=== PATIENT | male | born 2000 | race Two or more races ===

== ENCOUNTER 2024-04-05 16:49 | Emergency (ER) | payer MEDICAID, SELFPAY ==
[2024-04-05 17:15] VITALS: BP 118/78; PULSE 118; RESP 16; TEMP 38.4; O2SAT 98; BMI 24.4
--- NOTE | 2024-04-05 17:21 | XR_ITS ---
Examination: AP lateral chest 2 views TECHNIQUE: Upright AP lateral chest 2 views Exam date and time: April 05, 2024 1743 hours INDICATIONS: Coughing weakness today FINDINGS: Normal heart size Lungs are clear The osseous structures are intact IMPRESSION: No active disease
--- NOTE | 2024-04-05 17:22 | PD.EDRME ---
Rapid Medical Screening Exam E Arrival date/time: 04/05/24 16:49 23-year-old male presents the emergency department complaint of bilateral leg pain and muscle weakness patient noted to be febrile Chief Complaint: Extremity Problem,Nontraumatic Time Seen by Provider: 04/05/24 17:02 Vital signs: Vital Signs Temperature 101.1 F H 04/05/24 17:15 Pulse Rate 118 H 04/05/24 17:15 Respiratory Rate 16 04/05/24 17:15 Blood Pressure 118/78 04/05/24 17:15 Pulse Oximetry (%) 98 04/05/24 17:15 Oxygen Delivery Method Room Air 04/05/24 17:15
[2024-04-05 17:25] VITALS: TEMP 38.4
[2024-04-05] MEDS: IBUPROFEN TAB 400 MG TABLET 800 MG PO (17:25)
[2024-04-05 17:50] LABS: Lactate (Lactic Acid) 1.5 mMol/L (0.4-2.0)
[2024-04-05 17:53] LABS: Basophils # (Auto) 0.1 Thou/mm3 (0.0-0.2); Basophils % (Auto) 0 % (0-2.5); Eosinophils % (Auto) 0 % (0-10); Hematocrit 39.4 % (41.0-53.0); Immature Granulocytes % (Auto) 0 % (0-0); Immature Granulocytes Auto 0.04 Thou/mm3 (0.00-0.00); Lymphocytes # (Auto) 2.2 Thou/mm3 (1.0-4.8); Lymphocytes % (Auto) 15 % (10-50); Mean Corpuscular HGB Conc 35.5 g/dl (31.0-37.0); Mean Corpuscular Hemoglobin 29.6 pg (25.0-35.0); Mean Corpuscular Volume 83 fL (80-100); Monocytes # (Auto) 0.8 Thou/mm3 (0.0-0.8); Monocytes % (Auto) 6 % (0-12); Neutrophils # (Auto) 11.4 Thou/mm3 (1.8-7.7); Neutrophils % (Auto) 79 % (37-80); Nucleated Red Blood Cell % 0 /100 WBC (0); Platelet Count 307 Thou/mm3 (140-440); Red Blood Count 4.73 Miln/mm3 (4.50-5.90); White Blood Count 14.5 Thou/mm3 (3.8-10.6)
[2024-04-05 18:16] LABS: Alanine Aminotransferase 22 U/L (10-49); Albumin, Serum 4.8 gm/dL (3.5-5.0); Albumin/Globulin Ratio 1.6 (1.2-2.2); Alkaline Phosphatase 97 U/L (46-116); Anion Gap 9 (7-16); Aspartate Amino Transferase 25 U/L (0-34); BUN/Creatinine Ratio 10 Ratio (12-20); Bilirubin,Total 0.8 mg/dL (0.3-1.2); Blood Urea Nitrogen 7 mg/dL (9-23); C-Reactive Protein 6.2 mg/dL (0.0-0.9); Calcium 9.7 mg/dL (8.3-10.6); Calcium (Corrected) 9.7 mg/dL (8.5-10.1); Carbon Dioxide 24.3 mMol/L (20.0-31.0); Chloride 102 mMol/L (98-107); Creatine Kinase 136 U/L (34-171); Creatinine (Component) 0.7 mg/dL (0.6-1.3); Glucose 119 mg/dL (74-106); Osmolality,Calculated 269 (275-295); Potassium 3.5 mMol/L (3.4-5.1); Procalcitonin 0.16 ng/ml (0.0-0.49); Sodium 135 mMol/L (136-145); Total Protein 7.8 gm/dL (5.7-8.2); eGFR > 60 See Note
[2024-04-05 18:50] LABS: Collection Type, Urine Clean Catch
[2024-04-05 18:54] LABS: Bilirubin,Urine Negative (Negative); Blood,Urine Negative (Negative); Clarity,Urine Clear (Clear/Hazy); Color,Urine Lt-Yellow (Lt Yel-Yel); Culture Indicated,Urine Not Indicated; Glucose, Urine Negative (Negative); Ketones,Urine Negative (Negative); Leukocyte Esterase,Urine Negative (Negative); Nitrite,Urine Negative (Negative); Protein,Urine Negative (Neg - Trace); RBC,Urine 1 /hpf (0-3); Specific Gravity,Urine 1.008 (1.001-1.035); Squamous Epithelial Cell,Urine < 1 /hpf (0-5); Urobilinogen,Urine Negative mg/dL (0.0-1.0); WBC,Urine 1 /hpf (0-5)
[2024-04-05 20:55] VITALS: TEMP 36.8
[2024-04-05 20:56] VITALS: BP 108/68; PULSE 85; RESP 16; O2SAT 100
--- NOTE | 2024-04-05 20:57 | PC.NURSE ---
Pt to room 4 right now from lobby; assumed care.
--- NOTE | 2024-04-05 21:11 | PC.NURSE ---
Wilman Salazar at the bedside.
--- NOTE | 2024-04-05 21:17 | PD.EDADULT ---
ED General RME/HPI General Chief complaint: Extremity Problem,Nontraumatic Stated complaint: BILATERAL LOWER LEG / KNEE PAIN Time Seen by Provider: 04/05/24 17:02 Arrival date/time: 04/05/24 16:49 CC: Lower leg ankle pain and left elbow pain insidious onset woke up with it this morning. Denies any nausea vomiting or diarrhea was noted to have a fever when he triaged. The patient's mother states there is no other family members were ill with similar symptoms. Patient has no prior history of similar events. No OTC medicines taken. At the time of exam the patient already been given ibuprofen some hours before and has minimal pain at this time. RME / HPI RME / HPI narrative: 04/05/24 16:49 23-year-old male presents the emergency department complaint of bilateral leg pain and muscle weakness patient noted to be febrile Related Data Previous Rx's ?Medication ?Instructions ?Recorded mupirocin 2 % topical ointment 1 applicatio topical BID #22 grams 01/30/19 ibuprofen 400 mg tablet 400 mg PO Q8H #14 tabs 04/05/24 prednisone 20 mg tablet See Taper PO BID 3 days #6 tabs 04/05/24 Allergies Allergy/AdvReac Type Severity Reaction Status Date / Time No Known Allergies Allergy Verified 04/05/24 16:51 Review of Systems Review of Systems Narrative Review of Systems: GEN: No fever, no chills, no weight loss EYES: No discharge, no visual changes, no pain HEENT: No ear pain, no congestion, no sore throat PULM: No shortness of breath, no cough, no congestion CV: No chest pain, no dyspnea on exertion, no palpitations GI: No nausea, no vomiting, no diarrhea, no pain, no constipation : No frequency, no urgency, no dysuria MUSC/SKEL: +joint pain, no back pain SKIN: No rash PSYCH: No hallucinations, no depression HEME/LYMPH: No easy bleeding or bruising tendencies NEURO: No weakness, no headache Past Medical History Past Medical History CARDIAC: Negative Congestive Heart Failure RESPIRATORY: Negative Chronic Obstructive Pulmonary Disease (COPD) GENITOURINARY: Negative Renal Disease ENDOCRINE: Negative Diabetes Mellitus Type 1 or Diabetes Mellitus Type 2 Social History SMOKING STATUS: Never smoker ED Exam Narrative Physical exam: [General: Not in any acute distress Head normocephalic HEENT: Within acceptable limits Neck is supple nontender Chest equal chest rise nontender to palpation Respiratory: Clear to auscultation no wheezes crackles or rubs CV: Rate rhythm is regular no murmurs rubs or clicks Abdomen is soft nontender no masses positive bowel sounds all 4 quadrants Back: No CVA tenderness no spinous process tenderness from cervical spine thoracic and lumbar spine Skin: Intact no petechiae rash induration ulceration or crepitus Extremities: Lower extremities: Moving all extremities against resistance without complication no petechiae rash induration ulceration purpura, there is some very small amount of edema to the lateral malleolus of the left ankle, full range of motion cap refill in the digits less than 2 seconds. There is mild tenderness to the lateral malleolus. Moving all other extremities against resistance cap refill less than 2 seconds neurosensory intact Neuro: Awake alert oriented x3 Glascow coma 15 no focal deficits] Course Quality Measures none Orders Category Date Time Status Bedside COVID-19 Antigen Test NOW Care 04/05/24 17:21 Completed Bedside Influenza A&B Antigen Test NOW Care 04/05/24 17:21 Completed XR chest 2V Stat Exams 04/05/24 17:21 Completed Blood Culture (Lab) Stat Lab 04/05/24 17:33 Received CBC Stat Lab 04/05/24 17:30 Completed CRP [C-Reactive Protein] Stat Lab 04/05/24 17:30 Completed Comprehensive Metabolic Panel Stat Lab 04/05/24 17:30 Completed Creatine Kinase Stat Lab 04/05/24 17:30 Completed Lactate (Lactic Acid) Stat Lab 04/05/24 17:30 Completed Procalcitonin Stat Lab 04/05/24 17:30 Completed UA, C/S IF [Urinalysis, C/S if Indicated] Stat Lab 04/05/24 13:35 Completed Ibuprofen Tab [Motrin Tab] Med 04/05/24 17:22 Discontinued 800 mg PO X1 ONE Vital Signs Vital signs: Vital Signs Temperature 101.1 F H 04/05/24 17:15 Pulse Rate 118 H 04/05/24 17:15 Respiratory Rate 16 04/05/24 17:15 Blood Pressure 118/78 04/05/24 17:15 Pulse Oximetry (%) 98 04/05/24 17:15 Oxygen Delivery Method Room Air 04/05/24 17:15 [facility] Patient data External records reviewed:: [facility] previous records Clinical information provided by:: patient and parent Social determinants that could affect healthcare access:: none Patient has the following chronic illnesses:: None How is presenting disease/condition affected by chronic disease/condition?: uneffected by Evaluation data The following diagnostics were reviewed and interpreted by me:: lab results and radiology exam(s) Lab and/or radiology exams considered but not ordered:: CBC shows leukocytosis of 14.5 no bandemia no anemia thrombocytopenia CMP shows no acute electrolyte imbalances renal impairment transaminitis or T. bili elevation CRP is at 6.2 Lactic acid is 1.5 Procalcitonin is negative Urine is negative. Interpretation Summary: Pain is responded well to ibuprofen at this time I think this is a localized inflammatory reaction patient will put a small amount of steroids instead continue on ibuprofen which will be subcarina. There is a worsening of symptoms patient advised to follow-up with the [facility] for further evaluation. There is a leukocytosis of 14.5 and the patient has a fever he is nontoxic-appearing and not in any acute distress with no obvious signs of infection. Medications Medications considered but not ordered:: None Medication administrations:: Medication Administration History Discontinued Medications Ibuprofen (Ibuprofen Tab 400 Mg Tablet) 800 mg PO X1 ONE Stop: 04/05/24 17:23 Last Admin: 04/05/24 17:25 Dose: 800 mg Documented By: INA None Consultations Consultation(s) initiated? (list below): No Diagnosis Differential Diagnosis ED Complaint MDM: Autoimmune response, strain, sprain Most likely diagnosis given after review of the tests above:: Lower extremity pain Admission Indicated Admission indicated?: not indicated Explain why admission is indicated or not indicated:: Stable for outpatient follow-up Admission Request Was there a request for admission?: No Disposition Plan Disposition Plan: Discharge Discharge Attestation Discharge Attestation: The patient and all family members were given an opportunity to ask questions and understood the discharge instructions. Discharge instructions specifically effects, indications for sooner follow up or return to the emergency department, and the expected course of current diagnosis. Patient condition: Stable Medical Decision Making Differential Diagnosis Differential Diagnosis: Autoimmune response, strain, sprain Lab Data 04/05/24 17:30 04/05/24 17:30 Labs: Lab Results 04/05/24 04/05/24 Range/Units 13:35 17:30 WBC 14.5 H (3.8-10.6) Thou/mm3 RBC 4.73 (4.50-5.90) Miln/mm3 Hgb 14.0 (13.5-16.0) g/dL Hct 39.4 L (41.0-53.0) % MCV 83 (80-100) fL MCH 29.6 (25.0-35.0) pg MCHC 35.5 (31.0-37.0) g/dl RDW Std Deviation 35.0 L (35.1-43.9) fL Plt Count 307 (140-440) Thou/mm3 Neut % (Auto) 79 (37-80) % Lymph % (Auto) 15 (10-50) % [place] % (Auto) 6 (0-12) % Eos % (Auto) 0 (0-10) % Baso % (Auto) 0 (0-2.5) % Neut # (Auto) 11.4 H (1.8-7.7) Thou/mm3 Lymph # (Auto) 2.2 (1.0-4.8) Thou/mm3 [place] # (Auto) 0.8 (0.0-0.8) Thou/mm3 Eos # (Auto) 0.0 (0.0-0.5) Thou/mm3 Baso # (Auto) 0.1 (0.0-0.2) Thou/mm3 Immature Gran # (Auto) 0.04 H (0.00-0.00) Thou/mm3 Absolute Nucleated RBC 0.00 (0.00-0.00) Thou/mm3 Immature Gran % 0 (0-0) % Nucleated RBC % 0 (0) /100 WBC Sodium 135 L (136-145) mMol/L Potassium 3.5 (3.4-5.1) mMol/L Chloride 102 (98-107) mMol/L Carbon Dioxide 24.3 (20.0-31.0) mMol/L Anion Gap 9 (7-16) BUN 7 L (9-23) mg/dL Creatinine 0.7 (0.6-1.3) mg/dL Estim Creat Clear Calc 144.0 (>60) mL/min eGFR > 60 (60 - ) See Note BUN/Creatinine Ratio 10 L (12-20) Ratio Glucose 119 H (74-106) mg/dL Calculated Osmolality 269 L (275-295) Lactic Acid 1.5 (0.4-2.0) mMol/L Calcium 9.7 (8.3-10.6) mg/dL Corrected Calcium 9.7 (8.5-10.1) mg/dL Total Bilirubin 0.8 (0.3-1.2) mg/dL AST 25 (0-34) U/L ALT 22 (10-49) U/L Alkaline Phosphatase 97 (46-116) U/L Total Creatine Kinase 136 (34-171) U/L C-Reactive Prot, Quant 6.2 H (0.0-0.9) mg/dL Total Protein 7.8 (5.7-8.2) gm/dL Albumin 4.8 (3.5-5.0) gm/dL Globulin 3.0 (2.3-3.5) gm/dL Albumin/Globulin Ratio 1.6 (1.2-2.2) Procalcitonin 0.16 (0.0-0.49) ng/ml Ur Collection Type Clean Catch Urine Color Lt-Yellow (Lt Yel-Yel) Urine Clarity Clear (Clear/Hazy) Urine pH 6.0 (5.0-7.0) Ur Specific [place] 1.008 (1.001-1.035) Urine Protein Negative (Neg - Trace) Urine Glucose (UA) Negative (Negative) Urine Ketones Negative (Negative) Urine Blood Negative (Negative) Urine Nitrite Negative (Negative) Urine Bilirubin Negative (Negative) Urine Urobilinogen (Auto) Negative (0.0-1.0) mg/dL Ur Leukocyte Esterase Negative (Negative) Urine RBC 1 (0-3) /hpf Urine WBC 1 (0-5) /hpf Ur Squamous Epith Cells < 1 (0-5) /hpf Urine Bacteria None (None) Ur Culture Indicated? Not Indicated Discharge Plan Plan Patient Disposition: HOME (Self Care) Patient condition on transfer: Stable Prescriptions/Referrals Prescriptions/Med Rec: New prednisone 20 mg tablet See Taper PO BID 3 Days Qty: 6 0RF Taper: Prednisone Taper 20 mg DAILY for 2 Days and 0 Hour 10 mg DAILY for 2 Days and 0 Hour 5 mg DAILY for 7 Days and 0 Hour ibuprofen 400 mg tablet 400 mg PO Q8H Qty: 14 0RF No Action mupirocin 2 % ointment 1 applicatio TOPICAL BID Qty: 22 0RF Referrals: Navin Urena MD [Primary Care Provider] - In 1 week Problem List Clinical Impression: Leg pain Patient/Caregiver Discharge Instructions Print Language: Polish Stand Alone Forms: Aniyah Award Info., Work/School Release, Patient Portal Info Letter MD Attestation Attestation The patient was seen by the midlevel practitioner. I, the co-signing physician, was present during the entire ER visit. While I did not physically examine the patient, I was available for consultation as needed.
[2024-04-05 21:29] VITALS: BP 105/61; PULSE 78; RESP 16; O2SAT 100
== END 2024-04-05 21:28 | disposition home or self-care (01) ==
PROVIDERS: Nurse Practitioner Primary Care; Emergency Provider Emergency Medicine; PCP Family Medicine
DX: M25.561 Pain in right knee (principal); M25.562 Pain in left knee; M79.662 Pain in left lower leg; M79.661 Pain in right lower leg; M25.522 Pain in left elbow; M25.572 Pain in left ankle and joints of left foot; M25.571 Pain in right ankle and joints of right foot; M62.81 Muscle weakness (generalized); R05.9 Cough, unspecified; D72.829 Elevated white blood cell count, unspecified; R50.9 Fever, unspecified
CPT/HCPCS: 36415; 71046; 80053; 81001; 82550; 83605; 84145; 85025; 86140; 87040; 87400; 87811; 99283; A9270